=== PATIENT | male | born 1980 | race Caucasian/White ===

== ENCOUNTER 2018-04-27 22:42 | Emergency (ER) | payer BC, OTHER ==
--- NOTE | 2018-04-28 00:14 | Ultrasound Preliminary Report ---
Exam: US DUPLEX EXT VEINS RIGHT IMPRESSION: No evidence for deep venous thrombosis. [facility] SITE ID: [id number]
--- NOTE | 2018-04-28 00:14 | Ultrasound Report ---
EXAM: RIGHT LOWER EXTREMITY VENOUS ULTRASOUND EXAM DATE: 04/27/2018 11:43 PM. CLINICAL HISTORY: Hx DVT, same symtoms in RLEx24 hours. COMPARISON: None. TECHNIQUE: Real-time sonographic vascular imaging was performed by the online community manager through the lower extremity utilizing both color-flow and Doppler spectral analysis. Multiple commissary representative static alvaro ges were saved for review. FINDINGS: Common Femoral Vein (CFV): Normal. CFV-GSV Junction: Normal. Profunda Femoral Vein (PFV): Normal. Femoral Vein (FV) Prox: Normal. Femoral Vein (FV) Mid: Normal. Femoral Vein (FV) Dist: Normal. Popliteal Vein: Normal. Posterior Tibial Veins: Normal. Peroneal Veins: Normal. Contralateral Side CFV: Normal. Other: There is a thin lateral knee compartment fluid collection measuring 3.9 x 1.7 x 0.5 cm. IMPRESSION: No evidence for deep venous thrombosis. [facility] Referring Provider Line: [phone] SITE ID: [id number]
--- NOTE | 2018-04-28 01:31 | ED Physician Documentation ---
History of Present Illness - Stated complaint Stated Complaint: LEG PX - Chief complaint Chief Complaint: Ext Problem - History obtained from History obtained from: Patient - History of Present Illness Timing: Yesterday Improved by: no ameliorating factors Worsened by: palpation - Additonal information Additional information: c/o rapid onset right posterior calf pain and tenderness yesterday while at rest. has not noticed swelling of the leg and denies chest pain, shortness of breath. he feels that his symptoms are similar to those associated with DVT he had 5 years ago. Review of Systems Cardiac: reports: Calf pain. denies: Chest pain / pressure, Pedal edema Respiratory: denies: Dyspnea Musculoskeletal: reports: Extremity pain. denies: Extremity swelling PD PAST MEDICAL HISTORY - Past Medical History Past Medical History: Yes Cardiovascular: None Respiratory: None Neuro: None Endocrine/Autoimmune: None GI: None : None HEENT: None Psych: None Musculoskeletal: None Derm: None Other Past Medical History: PREVIOUS R LOWER LEG DVT X years ago... - Present Medications Home Medications: Ambulatory Orders Medication Instructions Recorded Confirmed No Known Home Medications [No 04/27/18 04/27/18 Known Home Medications] - Allergies Allergies/Adverse Reactions: Allergies Allergy/AdvReac Type Severity Reaction Status Date / Time No Known Drug Allergies Allergy Verified 04/27/18 22:59 - Social History Does the pt smoke?: No Smoking Status: Never smoker Does the pt drink ETOH?: No Does the pt have substance abuse?: No - Immunizations Immunizations are current?: Yes - POLST Patient has POLST: No PD ED PE NORMAL - Vitals Vital signs reviewed: Yes - General General: Alert and oriented X 3, No acute distress, Well developed/nourished - Derm Derm: Normal color, Warm and dry, No rash - Extremities Extremities: Normal ROM s pain, No edema, No calf tenderness / cord, Other ( mild tenderness, right posteromedial calf) Results - Vitals Vitals: Vital Signs - 24 hr 04/27/18 04/28/18 22:55 01:40 Temperature 36.9 C Heart Rate 74 77 Respiratory 18 16 Rate Blood Pressure 170/98 H 144/95 H O2 Saturation 100 100 Oxygen O2 Source Room air - Rads (name of study) RLE US Radiology: Prelim report reviewed, See rad report PD MEDICAL DECISION MAKING - ED course Complexity details: reviewed results, re-evaluated patient, considered differential, d/w patient - Sepsis Event Vital Signs: Vital Signs - 24 hr 04/27/18 04/28/18 22:55 01:40 Temperature 36.9 C Heart Rate 74 77 Respiratory 18 16 Rate Blood Pressure 170/98 H 144/95 H O2 Saturation 100 100 Oxygen O2 Source Room air Departure - Departure Disposition: 01 Home, Self Care Clinical Impression: Pain of lower extremity Condition: Good Instructions: ED Symptoms No Dx Follow-Up: KRISTY Chris [Provider Group] Discharge Date/Time: 04/28/18 01:40
[2018-04-28 01:47] VITALS: BP 144/95
== END 2018-04-28 01:40 | disposition home or self-care (01) ==
LOC: ED 22:42
DX: M79.661 Pain in right lower leg (principal); Z86.718 Personal history of other venous thrombosis and embolism
CPT/HCPCS: 99282; 99283